=== PATIENT | male | born 1965 | race Caucasian/White ===

== ENCOUNTER 2018-08-01 12:06 | Inpatient (IN) ==
[~2018-08-01 12:06] MED LIST: MORPHINE SULFATE 30 MG ER TABLET PO SCH
[2018-08-01] MEDS ORDERED: ONDANSETRON 4 MG/2 ML VIAL IVP PRN (13:30)
[2018-08-01] MEDS ORDERED: DOCUSATE 100 MG CAPSULE PO PRN (13:30)
[2018-08-01] MEDS ORDERED: CALCIUM CARBONATE 500 MG (TUMS) CHEWABLE TABLET PO PRN (13:30)
[2018-08-01] MEDS ORDERED: LIDOCAINE W/ SODIUM BICARB 0.5 ML SYR SUBD PRN (13:30)
[2018-08-01] MEDS ORDERED: ACETAMINOPHEN 325 MG TABLET PO PRN (13:30)
[2018-08-01] MEDS ORDERED: CYCLOBENZAPRINE 10 MG TABLET PO PRN (13:31)
[2018-08-01] MEDS ORDERED: oxyCODONE IR Tab 5 MG TAB PO PRN ×2 (13:31)
[2018-08-01] MEDS ORDERED: MORPHINE SULFATE 15 MG PO PRN (13:31)
[2018-08-01] MEDS: oxyCODONE IR Tab 15 MG TAB PO PRN ×2 (15:32→19:07)
[2018-08-01] MEDS: ASPIRIN EC 81 MG TABLET PO SCH (15:32)
--- NOTE | 2018-08-01 16:38 | PT.PROG ---
Progress Note Progress Note: on hold per nursing and per pt due to high pain levels . inspected incision redness around wound , dressing change was performed by nursing. will attempt PT eval tomorrow.
[2018-08-01] MEDS: HYDROmorphone 2 MG/1 ML IVP PRN ×2 (16:56→20:48)
[2018-08-01] MEDS: metFORMIN 500 MG TABLET PO SCH (20:49)
[2018-08-01] MEDS ORDERED: metFORMIN ER 500 MG TABLET PO SCH (21:00)
[2018-08-01] MEDS ORDERED: Simvastatin Tab 20 MG TAB PO SCH (21:00)
[2018-08-01] MEDS ORDERED: CEPHALEXIN 500 MG CAPSULE PO SCH (21:00)
--- NOTE | 2018-08-01 21:37 | NEURO.PROG ---
Subjective Post Op Day: 7 Pain Management: PO Saunders Catheter: No Diet: Constant carbohydrate Ambulating: No Additional Details: Readmitted from [place] [facility] for intractable back pain. Pre-operative left leg pain remains gone. Did not look at incision, but better then yesterday per Dr. Modi. Continue antibiotics, add Diflucan for yeast coverage. Continue to manage post-operative pain. Mobilize. Objective : Data - Vital Signs Vital Signs and I&O: Vital Signs - Last Taken Temperature 98.9 F 08/01/18 19:55 Pulse Rate 100 08/01/18 19:55 Respiratory Rate 18 08/01/18 19:55 Blood Pressure 148/76 08/01/18 19:55 Pulse Ox 90 08/01/18 19:55 Intake and Output (24hr x 4 totals) 07/30/18 07/31/18 08/01/18 08/02/18 05:59 05:59 05:59 05:59 Intake Total 1050 / 1050 Output Total 425 / 425 Balance 625 / 625
[2018-08-01] MEDS ORDERED: FLUCONAZOLE 200 MG TABLET PO ONE (21:40)
--- NOTE | 2018-08-01 21:47 | PDOC ---
HPI - History of Present Illness Date of Service: 08/01/18 Time of Service: 16:00 Chief Complaint: Increased back pain History of Present Illness: This very pleasant 53-year-old male that has had lumbar surgery here this past week. There was a question of whether his wound might be developing a possible infection, this is quite erythematous in the center, but there is no drainage. He was sent home on his pain medications, but apparently for his quick acting, breakthrough pain medication, he was sent home on morphine intermediate release or MSIR and it did not really help his pain at all. He was on Percocet and oxycodone during the hospital stay. At discharge we arranged for wound care therapy to be done in [place], [place] as the patient is about 30 miles outside of [place]. He denies any fevers, chills, nausea or vomiting, or other systemic symptoms. This morning however, his pain was excruciating and seemed to spike in intensity and he went in for evaluation for that. Upon arrival, he had not had his wound dressing change done with therapy per my understanding, but it was reviewed by Dr. Harris whom I spoke with. She was not concerned about deep tissue infection and in my discussion with her, the patient seemed to have mostly exacerbated postoperative pain. She did do cultures of the wound which were sent off for Gram stain and culture analysis at [facility] in [place], [place]. The patient was transferred here for further evaluation of his exacerbation of pain post surgery. White blood cell count was normal in [place] today. His sodium was low in the 129 and his creatinine appeared normal. Plate lets, which were found to be low on admission here, where 66,000 but there was no obvious bleeding on evaluation. The patient cannot point to anything that caused worsening pain, he does state that the oxycodone seemed to work better for him in the hospital then MSIR. He has not had any nausea. Movement seems to make his pain worse. He was lying on his side on my examination. I did view the wound and I saw the swing yesterday, and it appears that they're somewhat receding erythema from yesterday and I still cannot express any pus drainage. There appears to be some blistering close to the incision itself. He received Dilaudid in the emergency room in [place]. Past Medical History Medical History: 1. Diabetes on oral hypoglycemic agent. 2. On lisinopril but apparently no hypertension (renal protection with diabetes). 3. Hypercholesterolemia. 4. Chronic low back pain, and this is post a work related injury in [place] in which he fell down a man hole. 5. History of right leg paralysis, he uses a wheelchair Surgical History: Multiple back surgeries, about 7 previous back surgeries Pertinent Family History: History of prostate cancer. Past Social History: Does not drink alcohol. Has a significant other that he's been living with for 6 years. Has children that are described as healthy and his daughter, Tara, is here with him today. Disabled. Tobacco Use: Former Smoker In the Past 12 Months, Have Used or Abuse Any of the Following Substance: None Alcohol Use: None Medication / Allergies Home Medications: Home Medications Medication Instructions Recorded Confirmed Lisinopril 20 mg PO DAILY 03/25/18 08/01/18 Simvastatin 20 mg PO DAILY 03/25/18 08/01/18 aspirin 81 mg tablet,delayed 81 mg PO QDAY 06/26/18 08/01/18 release cyclobenzaprine 10 mg tablet 10 mg PO TID PRN #90 tab 07/31/18 08/01/18 oxycodone 5 mg tablet 10 mg PO Q4-6H PRN #80 tab 07/31/18 08/01/18 Empagliflozin [Jardiance] 1 tab PO DAILY 08/01/18 08/01/18 Glipizide [Glipizide Xl] 1 tab PO DAILY 08/01/18 08/01/18 Morphine Sulfate ER [MS Contin] 1 tab PO DAILY 08/01/18 08/01/18 Sitagliptin Phosphate [Januvia] 1 tab PO DAILY 08/01/18 08/01/18 metFORMIN Tab [Glucophage Tab] 2 tab PO BID 08/01/18 08/01/18 Allergies/Adverse Reactions: Allergies Allergy/AdvReac Type Severity Reaction Status Date / Time hydrocodone [From Vicodin] Allergy Itching Verified 07/29/18 18:26 Review of Systems - Review of Systems All Systems: Reviewed & No Additional Complaints Except as Stated (I did a 12 point review systems and it was negative other than that discussed below and in the history of present illness.) - Neurological Neurologic: REPORTS: Difficulty Walking (He has right leg paralysis and is essentially wheelchair bound I am told.) Exam - Vitals Vital Signs: Vital Signs Temperature 98.9 F Temperature Source Oral Pulse Rate [Apical] 98 Pulse Rate [Pulse Oximeter] 100 Respiratory Rate 18 Blood Pressure [Right Arm] 148/76 Pulse Ox 90 Oxygen Flow Rate 2 Oxygen Delivery Method Nasal Cannula Height 5 ft 11 in Weight 225 lb - General General Appearance: No Acute Distress, Cooperative - Head Head Exam: Normal Inspection, Normocephalic, Atraumatic - Eye Eye Exam: POSITIVE: No Scleral Icterus - ENT ENT Exam: POSITIVE: Mucous Membranes Moist - Neck Neck Exam: Normal Inspection, No Tenderness, No Lymphadenopathy, No Thyromegaly, JVP is not Raised - Respiratory Respiratory Exam: POSITIVE: Clear to Auscultation - Bilaterally, Breathing Non Labored - Cardiovascular Cardiovascular Exam: POSITIVE: RRR, No Murmur, No Clicks, No Gallops, No Rubs, No JVD - GI/Abdominal GI/Abdominal Exam: POSITIVE: Normal Bowel Sounds, Non Tender, Non Distended, Soft - Rectal Rectal Exam: POSITIVE: Deferred - External Exam: POSITIVE: Deferred Exam: POSITIVE: Deferred - Extremities Extremities Exam: POSITIVE: No Clubbing Present, No Edema Present, No Cyanosis Present - Neurological Neurological Exam: POSITIVE: Alert, Oriented x 3, No Facial Droop, Speech Intact / Clear - Psychiatric Psychiatric Exam: POSITIVE: Normal Affect, Normal Mood - Integumentary Integumentary Exam: POSITIVE: Dry Additional Integumentary Exam Details: The lumbar incision appears clean. There is erythema with some blistering that seems to be forming close to the approximation of the wound. No pustular drainage. No deep mass on palpation. Question infection versus yeast versus local reaction to benzoin in chlorhexidine prep versus reaction to Mackey? Results - Labs Additional Lab Results: Sodium 129, potassium 4.6, chloride 96, CO2 24.4, BUN 21, creatinine 1.04, calcium 8.1 White blood cell count 7.90, hemoglobin 8.9, hematocrit 26.4, platelets 66,000 Above labs were reviewed from [place], [place]. Assessment and Plan - Patient Problems (1) Acute postoperative pain Current Visit: Yes Status: Acute Code(s): G89.18 - Other acute postprocedural pain (2) Diabetes mellitus type II, controlled Current Visit: Yes Status: Acute Code(s): E11.9 - Type 2 diabetes mellitus without complications Qualifiers: Diabetes mellitus information lead insulin use: without information lead use Diabetes mellitus complication status: without complication Qualified Code(s): E11.9 - Type 2 diabetes mellitus without complications (3) Hypertension Current Visit: Yes Status: Acute Code(s): I10 - Essential (primary) hypertension Qualifiers: Hypertension type: essential hypertension Qualified Code(s): I10 - Essential (primary) hypertension (4) Abnormal surgical wound Current Visit: Yes Status: Acute Code(s): T81.9XXA - Unspecified complication of procedure, initial encounter Qualifiers: Encounter type: subsequent encounter Qualified Code(s): T81.9XXD - Unspecified complication of procedure, subsequent encounter (5) Status post lumbar spinal fusion Current Visit: No Status: Acute Code(s): Z98.1 - Arthrodesis status (6) Thrombocytopenia Current Visit: Yes Status: Acute Code(s): D69.6 - Thrombocytopenia, unspecified - Assessment / Plan Additional Assessment/Plan Details: Admit the patient for observation, change MSIR to oxycodone IR 15 mg every 4 hours when necessary breakthrough pain. I will also write for Dilaudid. I would like to avoid steroids until we have a better idea of what is causing the wound appearance. It is not clear if this is truly a postoperative infection versus yeast versus chemical reaction and what I would like to do is treated as if it could be localized cellulitis but there is no deep infection at this point. Ancef and Diflucan. PT for wound therapy. Neurosurgery aware. They will follow wound as well. PT and OT for mobilization. Resume diabetic medications. Post hospital stay at some point, I have written a prescription for the patient have a stress test due to his elevated troponins postoperatively during his recent hospital stay. He did have preoperative cardiac evaluation and it was felt that he would be okay for surgery and did not have evidence of prior myocar dial infarction upon further review of the EKG. I think the patient needs recover from the spinal surgery first as he will need to lay flat for imaging with SPECT CT. We'll try to remind the patient to this, and again I would like the patient to do this in about 3-4 weeks if possible. When patient had mild temperature 100.4 degrees, we did blood cultures 2. I will order incentive spirometry. given elevated blood pressures, this could be related to pain, but he may benefit from antihypertensive therapy. Check for culture growth tomorrow at [facility] with their lab. Labs in a.m. Blood sugar monitoring with sliding scale insulin as necessary. I will discuss with his primary physician he may need a further evaluation for thrombocytopenia perhaps a hematology consultation as an outpatient would be reasonable.
[2018-08-01] MEDS: ceFAZolin Inj 2 GM in Sodium Chloride 0.9% 100 ML IV SCH (22:28)
[2018-08-02] MEDS: HYDROmorphone 2 MG/1 ML IVP PRN ×2 (01:22→08:17)
[2018-08-02] MEDS: oxyCODONE IR Tab 15 MG TAB PO PRN ×4 (05:30→20:25)
[2018-08-02] MEDS: ceFAZolin Inj 2 GM in Sodium Chloride 0.9% 100 ML IV SCH (05:31)
[2018-08-02 05:39] LABS: BASOPHILS # (AUTO) 0.01 10*3/UL; BASOPHILS % (AUTO) 0.1 % (0-1); EOSINOPHILS # (AUTO) 0.05 10*3/UL; EOSINOPHILS % (AUTO) 0.6 % (0-8); Hematocrit [HCT] 24.9 % (42.0-52.0); Hemoglobin [HGB] 8.1 g/dL (14.0-18.0); LYMPHOCYTES # (AUTO) 1.53 10*3/uL; MEAN CORPUSCULAR HEMOGLOBIN 29.2 PG (27-31); MEAN CORPUSCULAR HGB CONC 32.5 g/dL (33-37); MEAN CORPUSCULAR VOLUME 89.9 FL (80-90); MEAN PLATELET VOLUME 12.4 FL (7.4-12.2); MONOCYTES # (AUTO) 1.31 10*3/UL (0.3-0.8); MONOCYTES % (AUTO) 15.3 % (5-15); NEUTROPHILS # (AUTO) 5.64 10*3/UL; NEUTROPHILS % (AUTO) 65.6 % (50-80); RED BLOOD COUNT 2.77 10^6/uL (4.70-6.10)
[2018-08-02 06:04] LABS: BLOOD UREA NITROGEN 21 mg/dL (7-22); BUN/CREATININE RATIO 23.33 (6-20); SERUM ALBUMIN 2.7 g/dL (3.5-4.8)
[2018-08-02 06:36] LABS: PLATELET MORPHOLOGY COMMENT NORMAL MORPHOLOGY (NORM); RBC MORPHOLOGY COMMENT SEE COMMENTS (NORM); WBC MORPHOLOGY COMMENT NORMAL MORPHOLOGY (NORM)
[2018-08-02] MEDS ORDERED: GlipiZIDE Tab 5 MG TABLET PO SCH (07:00)
--- NOTE | 2018-08-02 07:26 | NEURO.PROG ---
Subjective Additional Details: On rounds with Dr Beasley this morning Mikael is awake and alert. His temp is 99. Dr Beasley examined his incision and noted widening of the upper third of the incision. Plan will be to continue antibiotics per Dr Modi today and take him to the operating room tomorrow to reopen, washout and reclose his incision. Objective : Data - Labs CBC and BMP: 08/02/18 05:22 08/02/18 05:22 - Vital Signs Vital Signs and I&O: Vital Signs - Last Taken Temperature 99.5 F 08/02/18 05:00 Pulse Rate 97 08/02/18 05:00 Respiratory Rate 18 08/02/18 05:00 Blood Pressure 154/83 08/02/18 05:00 Pulse Ox 92 08/02/18 05:00 Intake and Output (24hr x 4 totals) 07/31/18 08/01/18 08/02/18 08/03/18 05:59 05:59 05:59 05:59 Intake Total 1675 / 1675 Output Total 425 / 425 Balance 1250 / 1250
[2018-08-02] MEDS: MORPHINE SULFATE 30 MG ER TABLET PO SCH (08:16)
[2018-08-02] MEDS: ASPIRIN EC 81 MG TABLET PO SCH (08:16)
[2018-08-02] MEDS: metFORMIN 500 MG TABLET PO SCH ×2 (08:16→20:25)
[2018-08-02] MEDS: sitaGLIPtin Tab 100 MG TAB PO SCH (08:16)
[2018-08-02] MEDS: FLUCONAZOLE 200 MG TABLET PO SCH (08:16)
[2018-08-02] MEDS: JARDIANCE 25 MG PO SCH (08:18)
[2018-08-02] MEDS ORDERED: LISINOPRIL 20 MG TABLET PO SCH (09:00)
[2018-08-02] MEDS ORDERED: sitaGLIPtin Tab 100 MG TAB PO SCH (09:00)
[2018-08-02] MEDS ORDERED: EMPAGLIFLOZIN 25 MG PO SCH (09:00)
[2018-08-02] MEDS ORDERED: metFORMIN 500 MG TABLET PO SCH (09:00)
[2018-08-02] MEDS ORDERED: Simvastatin Tab 20 MG TAB PO SCH (09:00)
[2018-08-02] MEDS ORDERED: Sodium Chloride 0.9% 500 ML PRIMARY IV ONE (09:23)
[2018-08-02] MEDS ORDERED: Vancomycin-PHA to Dose IV PRN (09:59)
[2018-08-02] MEDS: cefTRIAXone Inj 2 GM in Sodium Chloride 0.9% 100 ML IV SCH (11:30)
--- NOTE | 2018-08-02 20:40 | PDOC(PROG) ---
Date of Service: 08/02/18 Time of Service: 20:31 Interval History: seen, evaluated earlier today. no chest pain, no shortness of breath sister concerned about C. diff as side effect of antibiotics, askes about probiotics no nausea or vomiting dilaudid reported as too sedating. back pain better without movement. worse when up. Objective : Data - Labs CBC and BMP: 08/02/18 05:22 08/02/18 05:22 Additional Lab Results: 08/02/18 05:22 Calcium 7.9 L Total Bilirubin 1.0 AST 37 ALT 45 Alkaline Phosphatase 64 Total Protein 5.1 L Albumin 2.7 L Globulin 2.4 L Albumin/Globulin Ratio 1.10 L Objective : Exam - General General Appearance: No Acute Distress, Cooperative Additional General Exam Details: Vital Signs - Last Taken Temperature 99.7 F H 08/02/18 17:53 Pulse Rate 93 08/02/18 19:00 Respiratory Rate 18 08/02/18 17:53 Blood Pressure 118/69 08/02/18 17:53 Pulse Ox 92 08/02/18 17:53 - Eye Eye Exam: No Scleral Icterus - ENT ENT Exam: Mucous Membranes Moist - Neck Neck Exam: JVP is not Raised - Respiratory Respiratory Exam: Clear to Auscultation - Bilaterally, Breathing Non Labored - Cardiovascular Cardiovascular Exam: RRR, No Murmur, No Clicks, No Gallops, No Rubs, No JVD - GI/Abdominal GI/Abdominal Exam: Normal Bowel Sounds, Non Tender, Non Distended, Soft - Extremities Extremities Exam: No Clubbing Present, No Edema Present, No Cyanosis Present - Neurological Neurological Exam: Alert, Oriented x 3, No Facial Droop, Speech Intact / Clear Assessment and Plan - Patient Problems (1) Postoperative wound infection Current Visit: Yes Status: Acute Code(s): T81.49XA - Infection following a procedure, other surgical site, initial encounter (2) Acute postoperative pain Current Visit: Yes Status: Acute Code(s): G89.18 - Other acute postprocedural pain (3) Diabetes mellitus type II, controlled Current Visit: Yes Status: Acute Code(s): E11.9 - Type 2 diabetes mellitus without complications Qualifiers: Diabetes mellitus mcc insulin use: without exterminator helper termite use Diabetes mellitus complication status: without complication Qualified Code(s): E11.9 - Type 2 diabetes mellitus without complications (4) Hypertension Current Visit: Yes Status: Acute Code(s): I10 - Essential (primary) hyperten yvon Qualifiers: Hypertension type: essential hypertension Qualified Code(s): I10 - Essential (primary) hypertension (5) Status post lumbar spinal fusion Current Visit: No Status: Acute Code(s): Z98.1 - Arthrodesis status (6) Thrombocytopenia Current Visit: Yes Status: Acute Code(s): D69.6 - Thrombocytopenia, unspecified - Assessment / Plan Additional Assessment/Plan Details: given hypotension with post operative state with original surgery, possible troponin elevation in that setting, will transfuse 2 units PRBC The patient does not have any anginal symptoms. He has no dyspnea with exertion. No history of kidney disease. No history of stroke or congestive heart failure. Based on AHA/ACC guidelines for perioperative evaluation, and the nature of the need to address the wound surgically, I suggest the patient go to the operating room and had postoperative risk stratification as appropriate. I do plan to conduct a stress test, likely a Lexiscan stress test, during this hospital stay, post surgery. Given the nature of IV antibiotics, surgical need for wound, patient will be admitted as an inpatient and I wrote that order earlier today. Stop Dilaudid I checked with Mike, and the Gram stain from [place] shows gram-negative rods at 4+. Final culture and ID and sensitivities are pending. After surgery tomorrow, and depending on surgical findings, we'll likely get infectious disea se involved for duration of antibiotics. I did change him from Ancef to Rocephin. One dose of gentamicin for synergy given gram-negative rods. As per neurosurgery request, vancomycin for now, and patient is also on Diflucan. We may be able to eliminate vancomycin post surgery pending Gram stain and culture results from wound culture and surgical culture Labs in a.m. Start probiotic. The patient had some problems with fluid overload on prior hospital stay. Given his blood transfusion today, I will start fluids tomorrow, LR at 75 mL's per hour at 6 AM. He is slated to have surgery sometime around noon. Given his persistent hypoxia and no oxygen requirement at home, check a chest x-ray. Keep head of bed elevated to prevent aspiration is much as possible. We will continue PT and OT. Likely held tomorrow for surgery. Hold off on lisinopril and discontinue that for now given postoperative hypotension and prior surgery. This is totally prevent any prerenal and/or intrinsic renal failure from lisinopril in the perioperative setting. Hold diabetic medications tomorrow. Very complex, greater than 40 minutes with greater than 50% of time counseling and coordination of care. - Time/Visit Time Spent With Patient: Greater Than 35 [place]
[2018-08-02] MEDS: ACIDOPHILUS/BULGARICUS CHEWABLE TABLET PO SCH (20:57)
[2018-08-02] MEDS ORDERED: Mupirocin Nasal Oint 2% 1 gm Tube ENOS SCH (21:00)
[2018-08-02] MEDS: Nasal Sanitizer POPSWAB ampule 1 AMP (Nozin) ENOS SCH (21:44)
--- NOTE | 2018-08-02 21:59 | DI ---
EXAM: XR Chest, 1 View CLINICAL HISTORY: ITS.REASON hypoxia Physician Notes: Tech Comments: TECHNIQUE: Frontal view of the chest. COMPARISON: No relevant prior studies available. FINDINGS: Lungs: Lung volumes with accentuated lung markings. Left basilar opacities, possible atelectasis or infiltrate. Pleural space: No significant pleural effusion or pneumothorax. Heart: Unremarkable. Mediastinum: Prominent mediastinal silhouette, may be related to technique, tortuous/ectatic aorta, or other etiology. Bones/joints: No acute fracture. IMPRESSION: 1. Lung volumes with accentuated lung markings. Left basilar opacities, possible atelectasis or infiltrate. 2. Prominent mediastinal silhouette, may be related to technique, tortuous/ectatic aorta, or other etiology. Compare to prior imaging if available.
[2018-08-03] MEDS: oxyCODONE IR Tab 15 MG TAB PO PRN ×2 (00:14→04:08)
[2018-08-03 05:19] LABS: BASOPHILS # (AUTO) 0.01 10*3/UL; BASOPHILS % (AUTO) 0.1 % (0-1); EOSINOPHILS # (AUTO) 0.26 10*3/UL; EOSINOPHILS % (AUTO) 3.5 % (0-8); Hemoglobin [HGB] 9.4 g/dL (14.0-18.0); LYMPHOCYTES # (AUTO) 0.68 10*3/uL; MEAN CORPUSCULAR HEMOGLOBIN 29.1 PG (27-31); MEAN CORPUSCULAR HGB CONC 32.4 g/dL (33-37); MEAN CORPUSCULAR VOLUME 89.8 FL (80-90); MEAN PLATELET VOLUME 13.4 FL (7.4-12.2); MONOCYTES # (AUTO) 0.78 10*3/UL (0.3-0.8); MONOCYTES % (AUTO) 10.4 % (5-15); NEUTROPHILS # (AUTO) 5.71 10*3/UL; NEUTROPHILS % (AUTO) 76.5 % (50-80); RED BLOOD COUNT 3.23 10^6/uL (4.70-6.10)
[2018-08-03] MEDS: Lactated Ringers 1,000 ML PRIMARY IV SCH ×2 (05:23→14:16)
[2018-08-03 05:37] LABS: PLATELET MORPHOLOGY COMMENT NORMAL MORPHOLOGY (NORM); RBC MORPHOLOGY COMMENT NORMAL MORPHOLOGY (NORM); WBC MORPHOLOGY COMMENT NORMAL MORPHOLOGY (NORM)
[2018-08-03 05:38] LABS: BUN/CREATININE RATIO 21.42 (6-20)
[2018-08-03] MEDS: FLUCONAZOLE 200 MG TABLET PO SCH (08:42)
[2018-08-03] MEDS: JARDIANCE 25 MG PO SCH (08:43)
[2018-08-03] MEDS: Nasal Sanitizer POPSWAB ampule 1 AMP (Nozin) ENOS SCH (08:43)
[2018-08-03] MEDS: sitaGLIPtin Tab 100 MG TAB PO SCH (08:43)
[2018-08-03] MEDS: ACIDOPHILUS/BULGARICUS CHEWABLE TABLET PO SCH ×2 (08:43→18:16)
[2018-08-03] MEDS: ASPIRIN EC 81 MG TABLET PO SCH (08:45)
[2018-08-03] MEDS: MORPHINE SULFATE 30 MG ER TABLET PO SCH (08:45)
[2018-08-03] MEDS ORDERED: Chlorhexidine Gluc Soap 4% 15 ML LIQUID TOPICAL SCH (09:00)
--- NOTE | 2018-08-03 10:05 | PDOC(PROG) ---
Date of Service: 08/03/18 Time of Service: 10:40 Interval History: no chest pain, no shortness of breath. no nausea or vomiting. back pain unchanged. anxious for surgery today. per RN, some drainage lower portion of wound. washout for today. increased edema no active complaints of bleeding felt he was urinating okay has had left shoulder pain X 2-3 months. Objective : Data - Labs CBC and BMP: 08/03/18 04:07 08/03/18 04:07 Additional Lab Results: 08/03/18 04:07 PT 12.8 H INR 1.11 - Imaging X-Ray Status: Image Reviewed by Me (on my view of chest x-ray, perhaps cardiomegaly and increase fluid?, no pneumonia) Objective : Exam - General General Appearance: No Acute Distress, Cooperative Additional General Exam Details: Vital Signs - Last Taken Temperature 98.8 F 08/03/18 08:53 Pulse Rate 78 08/03/18 08:53 Respiratory Rate 20 08/03/18 08:53 Blood Pressure 125/65 08/03/18 08:53 Pulse Ox 95 08/03/18 08:53 Selected Entries 08/02/18 15:15 Temperature 100.4 F H - Head Head Exam: Normal Inspection, Normocephalic, Atraumatic - Eye Eye Exam: No Scleral Icterus - ENT ENT Exam: Mucous Membranes Moist - Neck Neck Exam: JVP is not Raised - Respiratory Respiratory Exam: Clear to Auscultation - Bilaterally, Breathing Non Labored - Cardiovascular Cardiovascular Exam: RRR, No Murmur, No Clicks, No Gallops, No Rubs, No JVD - GI/Abdominal GI/Abdominal Exam: Normal Bowel Sounds, Non Tender, Non Distended, Soft - Extremities Extremities Exam: No Clubbing Present, No Cyanosis Present, +2 Edema - Neurological Neurological Exam: Alert, Oriented x 3, No Facial Droop, Speech Intact / Clear Assessment and Plan - Patient Problems (1) Thrombocytopenia Current Visit: Yes Status: Acute Code(s): D69.6 - Thrombocytopenia, unspecified (2) Postoperative wound infection Current Visit: Yes Status: Acute Code(s): T81.49XA - Infection following a procedure, other surgical site, initial encounter (3) Acute postoperative pain Current Visit: Yes Status: Acute Code(s): G89.18 - Other acute postprocedural pain (4) Diabetes mellitus type II, controlled Current Visit: Yes Status: Acute Code(s): E11.9 - Type 2 diabetes mellitus without complications Qualifiers: Diabetes mellitus intermediate frame tender insulin use: without long-term use Diabetes mellitus complication status: without complication Qualified Code(s): E11.9 - Type 2 diabetes mellitus without complications (5) Hypertension Current Visit: Yes Status: Acute Code(s): I10 - Essential (primary) hypertension Qualifiers: Hypertension type: essential hypertension Qualified Code(s): I10 - Essential (primary) hypertension (6) Status post lumbar spinal fusion Current Visit: No Status: Acute Code(s): Z98.1 - Arthrodesis status (7) Anemia Current Visit: Yes Status: Acute Code(s): D64.9 - Anemia, unspecified Qualifiers: Anemia type: unspecified type Qualified Code(s): D64.9 - Anemia, unspecified - Assessment / Plan Additional Assessment/Plan Details: Transfuse 2 units of platelets today Switch from LR to normal saline. Creatinine is up to 1.4 and although normal, given postoperative hypertension and prior surgery, I think this might make some sense especially to keep potassium out of the fluids given his high potassium post prior surgery. Saunders catheterization at time of surgery I think would be okay. He has no evidence of acute urinary retention with a bladder scan of about 250 mils. Post surgery had like to see the patient again so that we can start some diuresis to pull off some of this fluid. Postoperatively, when a little more stabilized, and like to go ahead and get a stress test to risk stratify further. Given the complaints shoulder pain, left shoulder x-ray. Continue antibiotics and I will discuss with infectious disease in trying get a referral as I would like him to follow this as well to help guide antibiotic therapy and length of therapy. And will check with hospital to see if there is any growth. Postoperative BMP. Will write for labs for tomorrow including a CBC with differential and comprehensive metabolic panel. Complex. Discussed with family at bedside. Questions answered.
[2018-08-03] MEDS ORDERED: Sodium Chloride 0.9% 500 ML PRIMARY IV ONE ×2 (10:20→17:30)
[2018-08-03] MEDS ORDERED: Sodium Chloride 0.9% 1,000 ML PRIMARY IV ONE (10:31)
[2018-08-03] MEDS ORDERED: Sodium Chloride 0.9% 1,000 ML PRIMARY IV SCH ×3 (10:45→20:45)
[2018-08-03] MEDS: cefTRIAXone Inj 2 GM in Sodium Chloride 0.9% 100 ML IV SCH (11:19)
[2018-08-03] MEDS ORDERED: DEXTROSE 50%-WATER SYRINGE 50 ML SYRINGE IVP ONE (11:21)
--- NOTE | 2018-08-03 11:31 | PTI REPORT ---
Thank you for the referral of Mikael Simms. He was seen on 08/02/18 for an inpatient evaluation secondary to weakness status post spinal surgery as well as wound care. SUBJECTIVE: The patient is a 53-year-old male who underwent a spinal surgery last week on Monday. The patient states that he was discharged to his home outside of [place] on 07/31/2018. He reports that he presented to the [facility] the following day secondary to uncontrolled pain and was sent back here to [facility] where he was then hospitalized. Per nursing report, the patient is scheduled for an I&D of his incision tomorrow at noon. The patient is very frustrated with his continued pain. He states that he continues to deal with high levels of pain and he is having difficulties with mobility. He was having issues prior to his surgery and since his surgery with being able to utilize his right lower extremity. A couple of months ago the patient did injure his left shoulder so he has been unable to use that and he is still having numbness into his bilateral upper extremities. The patient lives 30 miles outside of [place] with his girlfriend. She has been helping with transfers, dressing, and ADLs. During the patient's last hospitalization he was walking short distances with therapy and did need some assist with helping with his right lower extremity. PAST MEDICAL HISTORY: Past medical history can be found in the patient's medical record. OBJECTIVE FINDINGS: General observations: The patient was alert and oriented to setting upon PT arrival. The patient was supine in bed. Nursing was present as they do need a picture of the incision site. Bed mobility: The patient required max assist x2 in order to transfer from supine to rolling onto his left side. Once in that position he required max assist x2 to go from sidelying to seated edge of bed position to complete a log roll due to being unable to push up with his left arm and unable to lift his right lower extremity. Once in a seated edge of bed position, the patient required max cueing and a couple minutes to be able to scoot toward the edge of the bed so that his feet were on the ground. A gait belt was placed around the patient and socks were placed on the patient. Incision: The therapist did remove the patient's dressing so that we could obtain pictures of the incision site. The incision site is closed with lolita. It does appear that it is coming apart and there is drainage on the bottom portion of the bandage. The therapist is not sure when the previous dressing was changed but there was minimal to moderate serous drainage from the bottom of the incision and there is redness around the incision. The incision was cleansed with wound cleanser and dried. After that a Silverlon bandage was placed along the incision site. Transfers: The patient was getting uncomfortable with sitting and he preferred to transfer to a standing position to complete dressing change at that time. With assist of two the patient performed a sit to stand transfer and stood with hand hold assist x2 on the walker and contact guard assist x2. The patient transferred back to a seated position on the bed with contact guard assist x2. ASSESSMENT: The patient has fair rehab potential secondary to his age and past medical history and difficulties with pain management. Problem List: Pain Generalized weakness Limited functional use of his left upper extremity and right lower extremity Decreased endurance/activity tolerance Short-Term Goals: To be met by discharge from inpatient: We will continue to monitor incision. We most likely will have a new evaluation on the patient tomorrow after the I&D is performed. Patient will be able to transfer from bed to stand to work toward independence. Patient will be able to ambulate 100 feet with walker. Long-Term Goals: To be met following discharge from inpatient: We will re-evaluate the patient after his change in status and from there determine our goals and what will be the most appropriate for the patient at that time. TREATMENT PLAN: We will see the patient this afternoon and tomorrow prior to his surgery to work on our established goals. INITIAL TREATMENT: Treatment today consisted of the initial evaluation followed by one unit of functional activity. Following treatment the patient was left with OT to further work on his dressing and transfers. PRICE
--- NOTE | 2018-08-03 12:38 | OTI REPORT ---
Thank you for the referral of Mikael Simms. He was seen on 08/02/18 for an occupational therapy inpatient evaluation secondary to generalized weakness and back pain. SUBJECTIVE: The patient is a 53-year-old male who had a lumbar surgery performed by Dr. Horner last 07/25/2018. The patient was an inpatient for therapy services and then was discharged to home; however, he has been readmitted secondary to a possible infection in the incision site as well as extreme back pain. The patient lives at home with his who is the primary caregiver. The patient does have a significant health history to include eight back surgeries. He did have an injury back in [place] when he fell in a manhole, which started all of his back injuries. 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 He is able to weight-bear; however, he has difficulty with functional mobility in that lower extremity. The patient also reports that he has a bad left shoulder with possible rotator cuff tears after falling at home a couple of months ago. The patient reports that his home set up is appropriate for a wheelchair as that is his primary mode of transport within the house. He does have a ramp and his performs all ADL tasks. She reports that she completes lower and upper extremity dressing for the patient, she completes bathing tasks, all meal preparation, laundry, cooking, cleaning, etc. Following his surgery last Monday, the patient has reported bilateral hand numbness and tingling as well as significant swelling in bilateral hands and limited strength in the hands and arms. The patient currently reports very significant pain. He has not been out of bed this morning yet; he has been laying on his back. Nursing reports that the patient will be going in for an additional surgery tomorrow to remove lolita and for an I&D. The patient's incision will then be re-stapled. Physical therapy is following the patient for wound care at this time. PAST MEDICAL HISTORY: Past medical history can be found in the patient's medical record. OBJECTIVE FINDINGS: General observations: The patient was sitting edge of bed with PT upon the beginning of OT evaluation. The patient is currently on oxygen; however, he is not on oxygen at home. When given specific verbal cues, he was able to maintain oxygen saturation. The patient was very lethargic throughout the evaluation secondary to pain medication per nursing report. Range of motion: The patient demonstrated right upper extremity range of motion at 160 degrees of shoulder flexion and abduction and functional range of motion for the elbow, hand, and wrist on the right side. Upper extremity range of motion was not performed on the left due to the patient's reports of pain in the shoulder. He did demonstrate range of motion that was within normal limits for the elbow, hand, and wrist. Strength: Bilateral shoulder strength was not assessed secondary to the patient's report of pain. He does demonstrate strength of 5/5 on the right side for elbow flexion/extension and wrist flexion/extension. Right hand strength is 4/5. Left hand strength is 3/5. Transfers: The patient demonstrated the ability to complete a sit to stand transfer from edge of bed with min assist and was able to maintain standing x3 minutes x2 while his assisted with lower extremity bed bathing. The patient was able to hold onto the walker with both hands and stand for approximately three minutes while his completed clothing management and wiping of clarissa area, for which the patient required total assist. Activities of daily living: The patient was dependent with upper extremity dressing including donning and doffing a wire puller t-shirt secondary to left shoulder pain and generalized fatigue and weakness. The patient was able to tolerate sitting edge of bed x5 minutes; however, he did report an increase in pain. Bed mobility: The patient completed a log roll technique back into bed with max verbal cues and max assist x2 to lift lower extremities into bed and to guide upper extremity. ASSESSMENT: Rehab potential is fair. Problem List: Increased pain Decreased mobility Decreased ability to complete lower and upper extremity dressing Decreased upper extremity range of motion Decreased upper extremity strength Decreased ability to complete bed mobility Decreased ability to complete functional transfers Short-Term Goals: To be met by discharge from inpatient: Patient will tolerate bilateral upper extremity passive range of motion to within functional limits on the right side and in a pain free range on the left side. Patient will increase right upper extremity strength by one manual muscle grade and left upper extremity strength for the elbow, hand, and wrist. Patient will be able to complete a functional sit to stand transfer with min assist only to wheelchair while following back precautions. Patient will demonstrate the ability to complete bed mobility tasks with log rolling technique with mod assist x1 and verbal cues prior to discharge. Patient will demonstrate the ability to complete upper extremity dressing tasks with set up assistance only. Patient will demonstrate the ability to stand x8 minutes to assist his with lower extremity dressing tasks and hygiene tasks following toileting and/or bathing tasks. Long-Term Goals: To be met following discharge from inpatient: Patient will return home to prior level of function or at an improved level of function with basic ADLs. TREATMENT PLAN: Patient will be seen B.I.D during the week and one time per day over the weekend as an inpatient to address the above goals and objectives. INITIAL TREATMENT: Treatment today consisted of the occupational therapy evaluation followed by bed mobility, functional transfers from edge of bed, and activity tolerance while standing and basic hygiene tasks were performed. Following treatment the patient was left with nursing to further assess his oxygen. BROWND
[2018-08-03] MEDS ORDERED: Sodium Chloride 0.9% vial 30 ML ONE (14:19)
[2018-08-03] MEDS ORDERED: Gentamicin Inj 40 MG/ML VIAL ONE (14:19)
[2018-08-03] MEDS ORDERED: Vancomycin Inj 1gm vial ONE (14:20)
[2018-08-03] MEDS ORDERED: BACITRACIN 50,000 UNIT VIAL IRRIG ONE (14:20)
[2018-08-03] MEDS ORDERED: MIDAZOLAM HCL 2 MG/2 ML VIAL ONE (14:25)
[2018-08-03] MEDS ORDERED: PROPOFOL 10 MG/1 ML (200 MG/20 ML) VIAL IV ONE (14:26)
[2018-08-03] MEDS ORDERED: fentaNYL Inj 250 MCG/5 ML VIAL ONE (14:26)
[2018-08-03] MEDS ORDERED: LIDOCAINE MPF 2% - 5 ML (20 MG/1 ML) ONE (14:26)
[2018-08-03] MEDS: DEXTROSE 50%-WATER SYRINGE 50 ML SYRINGE IVP ONE ×2 (14:48→17:00)
[2018-08-03] MEDS ORDERED: ePHEDrine Inj 50 MG/ML AMP ONE (15:27)
[2018-08-03] MEDS ORDERED: Lactated Ringers 1,000 ML PRIMARY IV ONE (16:32)
--- NOTE | 2018-08-03 17:19 | CRNA.PROGR ---
Anesthesia Time - Procedure/Recovery Time Start Date: 08/03/18 End Date: 08/03/18 Anesthesia : Time In: 15:12 Anesthesia : Time Out: 16:58 Anesthesia : Total Time: 106 - Total Anesthesia Time Total Anesthesia Time (minutes): 106 - Other Weight: 102.058 kg Height: 5 ft 11 in Body Mass Index (BMI): 31.4 Physical Status: P3 Anesthesia Type: General Anesthesia : ET
--- NOTE | 2018-08-03 17:19 | CRNA.PROGR ---
Anesthesia Recovery Phase I - Post Anesthesia Evaluation Patient's Condition on Arrival in Phase I: Stable Pain Level: 0
--- NOTE | 2018-08-03 17:23 | GEN.OPNOTE ---
Operative Note Surgery Date: 08/03/18 Preoperative Diagnosis: Poorly healing post-operative inicision Postoperative Diagnosis: Poorly healing post-operative incision Procedure: 1.) Removal of surgical stainless steel lolita from surgical incision. 2.) Reclosure of incision with #2 Ethylon retension suture in wide interrupted vertical mattress fashion. Surgeon: Andrew Beasley MD Mailing Clerk: MONTSE Hoffman Anesthesia Provider: Joshua Leon CRNA Anesthesia Type: General Estimated Blood Loss (mL): 0 Fluids: See anesthesia record Pathology: None Indications: Status post recent multilevel lumbar fusion, nine days out from his surgical procedure, with poorly healing surgical incision with slight separation of the epithelial edges, irritated erythematous skin edges, with superficial sloughing of some of the epithelium. We discussed my recommendation that he return to the operating room to clean the incision well, remove the surgical stainless steel stapes, and re-close the incision with suture. He wished to proceed with the surgical procedure. Findings: 1.) Sloughing of the superficial epithelium in some areas of the incision (removed). 2.) Erythematous skin edges. 3.) Expressed surgical bed blood. 4.) Intact dermal, superficial subcutaneous #3-0 Vicryl suture layer. Complications: None Operative Summary: Mr. Simms was met in his room on the medical/surgical floor. The procedure to be performed was confirmed with Mr. Simms and we were in agreement on the procedure to be performed and this matched what was written on the patient's consent form. Any questions that Mr. Simms had or his had were answered before he was taken back to the operating room suite. Mr. Simms was brought to the operating room suite and put under general anesthesia and intubated by the anesthesia staff. He had pneumatic compression hose placed on his lower legs bilaterally. He was carefully rolled over onto the Jeffrey surgical table with his arms gently positioned upwards with her shoulders abducted less than 90. His arms were well-padded with foam padding on top of the padding of the surgical armboards. The region of his chest and axilla was checked to make sure that there were no pressure points over the region of the brachial plexus bilaterally. His nipples were checked be below the chest pad of the Jeffrey table no pressure points. All bony prominences were well padded. His pneumatic compression hose was attached and pneumatic compression device. Mr. Simms's incision was extensively cleansed with ChloraPrep stick. The surgical site stainless steel lolita were then removed. Mr. Simms was prepped and draped in the usual and standard fashion. He was not given preoperative antibiotics because he was already on a scheduled IV antibiotic regimen. A standard surgical timeout was performed identifying the correct patient, the correct procedure, and the correct procedure to be performed. Mr. Avendaños incision was cleansed with hydrogen peroxide. The incision was inspected. With the lolita removed the epithelium was but the dermal/superficial subcutaneous tissue was still intact and well reapproximated with the 3-0 Vicryl sutures with no evidence of separation, dehiscence, infection, or nonviable tissue, or drainage at this level, with the exception of some oozing of dark postoperative blood from the surgical bed at the very caudal aspect of the incision. Pressure to the lumbar paraspinous musculature allowed approximately 70-80 cc of blood to be evacuated from the surgical bed. The incision was closed with #2 Ethilon suture in interrupted vertical mattress fashion with wide throw of the deep aspect of the stitch and more narrow throw of the less deep aspect of the stitch, but keeping all of the suture lateral to the erythematous edges of the incision. The skin underneath the exposed portions of the sutures were protected by tunneling these parts of the suture through pieces of soft plastic drain catheter. The incision was again cleansed with hydrogen peroxide solution. The incision was then dressed with multiple gauze covered over by ABD dressings with the dressings secured with paper tape. All surgical drapes removed from Mr. Simms. He was carefully rolled over onto the PACU stretcher. He was awoken and extubated by the anesthesia staff. He was taken to the recovery room in stable condition. All surgical counts were reported as correct by the scrub and circulating personnel. A Physician's Mailing Clerk, Ms. Sweetie Bianchi PA-C, assisted with the procedure.
[2018-08-03] MEDS ORDERED: ACETAMINOPHEN 325 MG TABLET PO PRN (17:30)
[2018-08-03] MEDS ORDERED: Lactated Ringers 1,000 ML PRIMARY IV SCH (17:30)
[2018-08-03] MEDS ORDERED: HEPARIN 500 UNIT/5 ML SYRINGE FOR CENTRAL LINE IVP PRN (17:30)
[2018-08-03] MEDS ORDERED: Lidocaine 1% 10 MG/ML - 20 ML VIAL SUBCUT PRN (17:30)
[2018-08-03] MEDS ORDERED: LIDOCAINE W/ SODIUM BICARB 0.5 ML SYR SUBD PRN (17:30)
[2018-08-03] MEDS ORDERED: DOCUSATE 100 MG CAPSULE PO PRN (17:30)
[2018-08-03] MEDS ORDERED: CALCIUM CARBONATE 500 MG (TUMS) CHEWABLE TABLET PO PRN (17:30)
[2018-08-03] MEDS ORDERED: LIDOCAINE 2% 20 MG/ML - 20 ML VIAL SUBCUT PRN (17:30)
[2018-08-03] MEDS ORDERED: ONDANSETRON 4 MG/2 ML VIAL IVP PRN (17:30)
[2018-08-03] MEDS ORDERED: oxyCODONE IR Tab 15 MG TAB PO PRN (17:30)
--- NOTE | 2018-08-03 18:04 | NEURO.PROG ---
Subjective Post Op Day: 0 Pain Management: PO Saunders Catheter: No Flatus: Yes Diet: Consistent carbohydrate Ambulating: No Additional Details: Back on med/surg floor. Back pain well controlled. Arms feel "better". Moving all extremities except right lower extremity. Continue antibiotics. Continue post-operative pain control. Advance diet. Continue physical therapy. Objective : Data - Labs CBC and BMP: 08/03/18 04:07 08/03/18 04:07 - Vital Signs Vital Signs and I&O: Vital Signs - Last Taken Temperature 98.1 F 08/03/18 17:00 Pulse Rate 92 08/03/18 17:20 Respiratory Rate 13 08/03/18 17:20 Blood Pressure 156/91 08/03/18 17:20 Pulse Ox 97 08/03/18 17:20 Intake and Output (24hr x 4 totals) 08/01/18 08/02/18 08/03/18 08/04/18 05:59 05:59 05:59 05:59 Intake Total 1675 / 1675 3311 / 3311 1000 / 1000 Output Total 425 / 425 100 / 100 0 / 0 Balance 1250 / 1250 3211 / 3211 1000 / 1000
[2018-08-03 19:43] LABS: BASOPHILS # (AUTO) 0.01 10*3/UL; BASOPHILS % (AUTO) 0.1 % (0-1); EOSINOPHILS # (AUTO) 0.17 10*3/UL; EOSINOPHILS % (AUTO) 2.2 % (0-8); Hemoglobin [HGB] 9.5 g/dL (14.0-18.0); LYMPHOCYTES # (AUTO) 0.66 10*3/uL; MEAN CORPUSCULAR HEMOGLOBIN 30.2 PG (27-31); MEAN CORPUSCULAR HGB CONC 33.9 g/dL (33-37); MEAN CORPUSCULAR VOLUME 88.9 FL (80-90); MEAN PLATELET VOLUME 12.9 FL (7.4-12.2); MONOCYTES # (AUTO) 0.64 10*3/UL (0.3-0.8); MONOCYTES % (AUTO) 8.2 % (5-15); NEUTROPHILS # (AUTO) 6.31 10*3/UL; NEUTROPHILS % (AUTO) 80.7 % (50-80); RED BLOOD COUNT 3.15 10^6/uL (4.70-6.10)
[2018-08-03 19:47] LABS: BUN/CREATININE RATIO 19.5 (6-20)
[2018-08-03 19:51] LABS: PLATELET MORPHOLOGY COMMENT NORMAL MORPHOLOGY (NORM); RBC MORPHOLOGY COMMENT NORMAL MORPHOLOGY (NORM); WBC MORPHOLOGY COMMENT NORMAL MORPHOLOGY (NORM)
[2018-08-03] MEDS ORDERED: LIDOCAINE HCL 2 % 10 ML JELLY URO-JECT TOPICAL PRN (20:43)
[2018-08-03] MEDS ORDERED: LIDOCAINE HCL/PF 1% (10 MG/1 ML) - 2 ML AMP ONE (20:56)
[2018-08-03] MEDS ORDERED: LIDOCAINE HCL 2 % 10 ML JELLY URO-JECT TOPICAL ONE (20:57)
[2018-08-03] MEDS ORDERED: metFORMIN 500 MG TABLET PO SCH (21:00)
[2018-08-03] MEDS ORDERED: ACIDOPHILUS/BULGARICUS CHEWABLE TABLET PO SCH (21:00)
[2018-08-03] MEDS ORDERED: Nasal Sanitizer POPSWAB ampule 1 AMP (Nozin) ENOS SCH (21:00)
[2018-08-03] MEDS ORDERED: DEXTROSE 50%-WATER SYRINGE 50 ML SYRINGE IVP PRN ×2 (23:03→23:07)
[2018-08-03] MEDS ORDERED: Vancomycin-PHA to Dose IV PRN (23:04)
[2018-08-03] MEDS ORDERED: Insulin Sliding Scale Protocol SUBCUT PRN (23:07)
[2018-08-03] MEDS ORDERED: DEXTROSE 31 GM GEL PO PRN (23:07)
[2018-08-03] MEDS ORDERED: Glucagon Inj Vial 1 MG/ML VIAL IM PRN (23:07)
[2018-08-04] MEDS: oxyCODONE IR Tab 15 MG TAB PO PRN ×2 (04:18→09:21)
[2018-08-04 05:16] LABS: BASOPHILS # (AUTO) 0 10*3/UL; BASOPHILS % (AUTO) 0 % (0-1); EOSINOPHILS # (AUTO) 0.18 10*3/UL; EOSINOPHILS % (AUTO) 3.6 % (0-8); Hematocrit [HCT] 24.9 % (42.0-52.0); Hemoglobin [HGB] 8.1 g/dL (14.0-18.0); LYMPHOCYTES # (AUTO) 0.63 10*3/uL; MEAN CORPUSCULAR HEMOGLOBIN 29.2 PG (27-31); MEAN CORPUSCULAR HGB CONC 32.5 g/dL (33-37); MEAN CORPUSCULAR VOLUME 89.9 FL (80-90); MEAN PLATELET VOLUME 13.3 FL (7.4-12.2); MONOCYTES # (AUTO) 0.47 10*3/UL (0.3-0.8); MONOCYTES % (AUTO) 9.5 % (5-15); NEUTROPHILS # (AUTO) 3.67 10*3/UL; RED BLOOD COUNT 2.77 10^6/uL (4.70-6.10)
[2018-08-04 05:33] LABS: BUN/CREATININE RATIO 17.82 (6-20); SERUM ALBUMIN 2.8 g/dL (3.5-4.8)
[2018-08-04 05:36] LABS: PLATELET MORPHOLOGY COMMENT NORMAL MORPHOLOGY (NORM); RBC MORPHOLOGY COMMENT NORMAL MORPHOLOGY (NORM); WBC MORPHOLOGY COMMENT NORMAL MORPHOLOGY (NORM)
[2018-08-04 05:38] VITALS: O2SAT 95
[2018-08-04] MEDS ORDERED: Magnesium Sulfate 1gm (Premix) 1 GM/100 ML BAG IV ONE (06:12)
[2018-08-04 06:47] VITALS: BP 109/58; RESP 20; TEMP 99.8
[2018-08-04] MEDS ORDERED: Insulin Lispro Flexpen 300 UNIT/3 ML INSULN.PEN SUBCUT SCH (07:00)
--- NOTE | 2018-08-04 07:36 | DCSUMMARY ---
Hospitalization Summary Admit Date: 08/01/2018 Discharge Date: 08/04/18 Primary Diagnosis:: acute renal failure, postoperative wound infection Hospital Course: This very pleasant 53-year-old male who recently had lumbar surgery done on 07/25/2018, please see Dr. Beasley's notes for those procedure details. Postoperatively on that admission, the patient developed hypotension, postoperative anemia, and some mildly elevated troponins. His hypotension and kidney failure at that time were corrected, as well as his potassium. His kidney function resolved and returned to normal. He completed the rest of that hospital stay uneventfully, but there appeared to be some wound breakdown starting to develop. The patient had postoperative wound care therapy arranged back in his home town of [place], [place]. Overnight, the bandages fell off. He had increased back pain and went into the emergency room to have his increased postoperative back pain addressed, and at that time he had draining wound cultures done by Dr. Harris and those cultures were sent to [facility]. Escherichia coli, resistant to ampicillin and Ancef, was grown from culture. The patient was readmitted here directly from Dr. Harris for increased wound pain and reevaluation of the topical wound infection. The next day, the patient was taken for washout of that incision, please see Dr. Beasley's notes from 08/03/2018, note that we had the patient on both Rocephin and vancomycin at that point. Prior surgery, I was able to probe the lower portion of the wound. And the culture initially shows from that gram-positive cocci, but final culture results are pending. He has never had an MRSA infection before that we are aware of. When the patient was initially admitted, based on his prior hypotension issues, I held off on his lisinopril. I held his medications in terms of diabetes on the day of surgery, but despite this and IV fluids, the patient's creatinine has gradually increased, and he has become edematous. I changed the vancomycin dosing from scheduled dosings to pharmacy dosing and stopped medication entirely today as I think it could be playing a role in this renal failure. Given that he has failed conservative therapy, I looked to transfer the patient to a center with the stacking machine operator and Dr. Diaz and Dr. Juan were graciously willing to accept the patient's care to assist further and thank them greatly. Other issues for the patient from his prior hospital stay were these elevated troponins. It was our plan to consider doing a chemical stress test during this hospital stay. We are he had arrangements for the patient to see infectious disease in the clinic on 08/13/2018 with plans to continue Rocephin therapy until then, but I do not have the ability to place a PICC line prior to that. He does have negative blood cultures at 48 hours now. He is currently on Rocephin, today being day #3. We have him on probiotics. In terms of his diabetes, as mentioned I held all of his by mouth medications prior to surgery and have not resumed them. He has been managed with insulin therapy. He did have some hypoglycemia at and around the time of this wound washout. That seems to be stabilized now that he is eating a diet again. His postoperative pain has been intermittently difficult to control. He is normally on a long-acting morphine at home. Oxycodone for breakthrough pain seems to be helping with his breakthrough discomfort, but he does get fairly sedated with these medications. In terms of his fluid overload, he has received 2 units of packed red blood cells during this hospital stay due to anemia and my concern about these prior troponins that were elevated but has not been fully assessed. Interestingly, the patient also has thrombocytopenia. I stopped his glipizide and his statin therapy as they're both reported to cause thrombocytopenia and we still do not have a reason for this. His heparin-induced thrombocytopenia criteria are low and this is unlikely heparin-induced thrombocytopenia. I kept him on normal saline due to his worsening creatinine, but he has become more edematous which is another reason that I would prefer that the patient have renal/nephrology consultation. We did place a Saunders catheter, and upon placement he had 750 mL automatically out. We had a CT scan ordered for today to evaluate further for stones or any other postobstructive causes of kidney failure, but was asked to just hold off on those imaging studies as they can be done in [place] under the direction of the stacking machine operator and I think this is very reasonable as well. As an aside, the patient's left lower extremity numbness and pain has improved postoperatively. 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 Today, no chest pain or shortness of breath. Back pain is controlled. No nausea or vomiting. Assessment and Plan: 1. As per discharge assessments noted 2. Disposition: Patient is discharged to [facility] 3. Condition on discharge, stabilized to the best of my ability, but based on his condition, he could certainly deteriorate 4. Diet: regular diet 5. Activities:. PT and OT 6. Follow-Up: 1. Dr. Chavez 7 days post discharge 2. Dr. Beasley as scheduled 7. Medications at the Time of Discharge: Active Medications Generic Name Dose Route Start Last Admin Trade Name Freq PRN Reason Stop Dose Admin Acetaminophen 650 mg 08/03/18 17:30 Tylenol PO Q6H PRN Pain or Fever Aspirin 81 mg 08/04/18 09:00 Aspirin Ec PO DAILY JUAN Calcium Carbonate 1 - 2 tab 08/03/18 17:30 Tums PO Q6H PRN Heartburn Chlorhexidine Gluconate 15 ml 08/04/18 09:00 Hibiclens Cleanser 4% TOPICAL 08/07/18 09:01 DAILY JUAN Dextrose 50 ml 08/03/18 23:03 Dextrose 50% Inj IVP ONCE PRN glucose < 70 Dextrose 30 - 40 ml 08/03/18 23:07 Dextrose 50% Inj IVP Q15M PRN BG < 70 unable to take oral Docusate Sodium 100 mg 08/03/18 17:30 Colace PO BID PRN Constipation Glucagon 1 mg 08/03/18 23:07 Glucagen IM ONCE PRN BG < 70 NPO & NO IV Glucose 15 - 20 gm 08/03/18 23:07 Insta-Glucose Gel PO Q15M PRN BG < 70 Heparin Sodium (Porcine) 300 - 500 unit 08/06/18 08:00 Heparin Lock Inj (For Central Line) IVP BID PRN Flush Heparin Sodium (Porcine) 300 - 500 unit 08/03/18 17:30 Heparin Lock Inj (For Central Line) IVP BID PRN Flush Ceftriaxone Sodium 2 gm/ 100 mls @ 200 mls/hr 08/04/18 10:00 Sodium Chloride IV Q24H JUAN Sodium Chloride 1,000 mls @ 100 mls/hr 08/03/18 20:45 08/04/18 05:16 Normal Saline PRIMARY IV 100 mls/hr .Q10H JUAN Administration Insulin Human Lispro 0 - 14 unit 08/04/18 07:00 08/04/18 07:33 Humalog Flexpen Inj SUBCUT Not Given AC [facility] Protocol Lactobacillus Acidoph/Bulgaricus 4 tab 08/03/18 21:00 08/03/18 20:39 Lactinex PO 4 tab TID JUAN Administration Lidocaine HCl 0 mg 08/06/18 08:00 Xylocaine Inj 1% SUBCUT ONCE PRN picc line placement Lidocaine HCl 0 mg 08/06/18 08:00 Xylocaine Inj 2% SUBCUT ONCE PRN picc line placement Lidocaine HCl 0 mg 08/03/18 17:30 Xylocaine Inj 1% SUBCUT ONCE PRN picc line placement Lidocaine HCl 0 mg 08/03/18 17:30 Xylocaine Inj 2% SUBCUT ONCE PRN picc line placement Lidocaine HCl 0.5 ml 08/03/18 17:30 Lidocaine Buffered Inj SUBD ONCE PRN IV Starts Lidocaine HCl 10 ml 08/03/18 20:43 Xylocaine Uro-Ject 2% TOPICAL ONCE PRN Discomfort catheter insertion Morphine Sulfate 30 mg 08/04/18 09:00 Ms Contin PO DAILY [facility] Non-Formulary Medication 1 amp 08/03/18 21:00 08/03/18 20:40 Nozin Popswab Nasal As400 Analyst SAMUEL Not Given BID [facility] Ondansetron HCl 4 mg 08/03/18 17:30 Zofran Inj IVP Q4H PRN NAUSEA / VOMITING Oxycodone HCl 5 - 15 mg 08/03/18 23:09 08/04/18 04:18 Oxyir Tab PO 15 mg Q4H PRN Administration Pain 8. Time, care, counseling and coordination of care for this discharge is greater than 30 minutes. Exam - Vitals Vital Signs: Vital Signs Temperature 99.8 F Temperature Source Oral Pulse Rate [Apical] 96 Pulse Rate [Pulse Oximeter] 81 Pulse Rate 95 Respiratory Rate 20 Blood Pressure [Left Arm] 105/77 Blood Pressure [Right Arm] 109/58 Blood Pressure 147/81 Pulse Ox 95 Oxygen Flow Rate 2 Oxygen Delivery Method Nasal Cannula Height 5 ft 11 in Weight 225 lb - General General Appearance: No Acute Distress, Cooperative - Eye Eye Exam: POSITIVE: No Scleral Icterus - ENT ENT Exam: POSITIVE: Mucous Membranes Moist - Neck Neck Exam: JVP is not Raised - Respiratory Respiratory Exam: POSITIVE: Breathing Non Labored, Decreased Breath Sounds (In the bases bilaterally.) - Cardiovascular Cardiovascular Exam: POSITIVE: RRR, No Murmur, No Clicks, No Gallops, No Rubs, No JVD - GI/Abdominal GI/Abdominal Exam: POSITIVE: Normal Bowel Sounds, Non Tender, Non Distended, Soft - Extremities Extremities Exam: POSITIVE: No Clubbing Present, No Cyanosis Present, +2 Edema - Neurological Neurological Exam: POSITIVE: Alert, Oriented x 3, No Facial Droop, Speech Intact / Clear - Psychiatric Psychiatric Exam: POSITIVE: Normal Affect, Normal Mood Data Peritnent Studies: 08/02/18 08/03/18 08/03/18 05:22 04:07 04:07 WBC Hgb Hct Plt Count PT 12.8 H INR 1.11 Sodium Potassium Chloride Carbon Dioxide Anion Gap BUN Creatinine 0.9 1.4 Estimated GFR BUN/Creatinine Ratio Glucose Calculated Osmolality Calcium Magnesium Total Bilirubin 1.0 AST 37 ALT 45 Alkaline Phosphatase 64 Total Protein 5.1 L Albumin 2.7 L Globulin 2.4 L Albumin/Globulin Ratio 1.10 L 08/04/18 08/04/18 03:45 03:45 WBC 4.96 Hgb 8.1 L Hct 24.9 L Plt Count 54 L PT INR Sodium 132 L Potassium 4.4 Chloride 97 L Carbon Dioxide 27 Anion Gap 8 BUN 41 H Creatinine 2.3 H Estimated GFR 30 BUN/Creatinine Ratio 17.82 Glucose 133 H Calculated Osmolality 285.0 Calcium 7.7 L Magnesium 1.5 L Total Bilirubin 1.1 AST 107 H ALT 57 Alkaline Phosphatase 121 Total Protein 5.6 L Albumin 2.8 L Globulin 2.8 Albumin/Globulin Ratio 1.00 L Patient Problems - Patient Problem List (1) Acute renal failure Current Visit: No Status: Acute Code(s): N17.9 - Acute kidney failure, unspecified Qualifiers: Acute renal failure type: unspecified Qualified Code(s): N17.9 - Acute kidney failure, unspecified Category: Medical (2) Postoperative wound infection Current Visit: Yes Status: Acute Code(s): T81.49XA - Infection following a procedure, other surgical site, initial encounter Category: Medical (3) Thrombocytopenia Current Visit: Yes Status: Acute Code(s): D69.6 - Thrombocytopenia, unspecified Category: Medical (4) Acute postoperative pain Current Visit: Yes Status: Acute Code(s): G89.18 - Other acute postprocedural pain Category: Medical (5) Diabetes mellitus type II, controlled Current Visit: Yes Status: Acute Code(s): E11.9 - Type 2 diabetes mellitus without complications Qualifiers: Diabetes mellitus fuels sales representative insulin use: without fuels sales representative use Diabetes mellitus complication status: without complication Qualified Code(s): E11.9 - Type 2 diabetes mellitus without complications Category: Medical (6) Hypertension Current Visit: Yes Status: Acute Code(s): I10 - Essential (primary) hypertension Qualifiers: Hypertension type: essential hypertension Qualified Code(s): I10 - Essential (primary) hypertension Category: Medical (7) Status post lumbar spinal fusion Current Visit: No Status: Acute Code(s): Z98.1 - Arthrodesis status Category: Surgical (8) Anemia Current Visit: Yes Status: Acute Code(s): D64.9 - Anemia, unspecified Qualifiers: Anemia type: unspecified type Qualified Code(s): D64.9 - Anemia, unspecified Category: Medical
[2018-08-04] MEDS ORDERED: FLUCONAZOLE 200 MG TABLET PO SCH (09:00)
[2018-08-04] MEDS ORDERED: Chlorhexidine Gluc Soap 4% 15 ML LIQUID TOPICAL SCH (09:00)
[2018-08-04] MEDS ORDERED: ASPIRIN EC 81 MG TABLET PO SCH (09:00)
[2018-08-04] MEDS ORDERED: MORPHINE SULFATE 30 MG ER TABLET PO SCH (09:00)
[2018-08-04] MEDS ORDERED: JARDIANCE 25 MG PO SCH ×2 (09:00)
[2018-08-04] MEDS ORDERED: sitaGLIPtin Tab 100 MG TAB PO SCH (09:00)
[2018-08-04] MEDS ORDERED: cefTRIAXone Inj 2 GM in Sodium Chloride 0.9% 100 ML IV SCH (10:00)
[2018-08-06] MEDS ORDERED: LIDOCAINE 2% 20 MG/ML - 20 ML VIAL SUBCUT PRN ×2 (08:00)
[2018-08-06] MEDS ORDERED: Lidocaine 1% 10 MG/ML - 20 ML VIAL SUBCUT PRN ×2 (08:00)
[2018-08-06] MEDS ORDERED: HEPARIN 500 UNIT/5 ML SYRINGE FOR CENTRAL LINE IVP PRN ×2 (08:00)
== END 2018-08-04 09:31 | disposition short-term general hospital (02) | DRG 940 ==
LOC: MED/SURG → PREINTOOBSV 13:33 → OPS 08-03 14:28 → MED/SURG 08-03 17:22
PROVIDERS: ADMIT Family Medicine; ATTEND Family Medicine